=== PATIENT | male | born 1985 | race Two or more races ===

== ENCOUNTER 2018-01-12 10:45 | Emergency (ER) | payer MEDICAID, OTHER ==
[~2018-01-12] VITALS: Ht 167.6 cm; Wt 121.6 kg
[~2018-01-12 10:45] MED LIST: CYCLOBENZAPRINE10 MG ORAL; IBUPROFEN600 MG ORAL; NORCO 5-325 TA1 EACH ORAL; PERCOCET 5-3251 EACH ORAL; VALIUM10 MG ORAL
[2018-01-12] MEDS ORDERED: NKM (11:18)
[2018-01-12 11:41] VITALS: BP 155/91
[2018-01-12] MEDS ORDERED: Bacitracin Oint UD TOPIC ONE (12:15)
[2018-01-12] MEDS ORDERED: Cephalexin 500mg cap ORAL ONE (12:15)
[2018-01-12] MEDS ORDERED: Tetanus/Diptheria/Pertussis Vaccine 0.5ml Syr IM ONE (13:45)
--- NOTE | 2018-01-12 14:06 | Diagnostic Imaging Report ---
Indication: Pain, suspected foreign body Technique: 3 views left hand Comparison: none Findings: No acute fractures. No dislocations. The joint spaces are preserved. No radiopaque foreign body demonstrated Impression: Negative
--- NOTE | 2018-01-12 14:18 | Emergency Room Report ---
History of Present Illness General Chief Complaint: Foreign Body Source: Patient, Significant Other Present Illness HPI Patient had a splinter of wood poke through his L middle finger on Tuesday. There was swelling throughout the finger that day. Now it is localized to the proximal portion. He stated to me that he removed the piece of wood and is not sure he got all of it out. There is some pain there with throbbing. He denies numbness. The is some pain with movement of the finger - this has improved over the last few days. He is concerned about swelling and also redness. Denies fevers or chills. The redness is not advancing into the hand. R handed. Unknown last tetanus. No major medical problems. Allergies: Coded Allergies: No Known Allergies (Unverified , 04/18/14) Patient History Past Medical History: see triage record Social History: Denies: smoking Social History Narrative , works loading boxes Reviewed Nursing Documentation: PMH: Agreed; PSxH: Agreed Nursing Documentation-PMH Hx Asthma: Yes Review of Systems Constitutional: Reports: see HPI Musculoskeletal: Reports: see HPI Skin: Reports: see HPI Neurological: Reports: see HPI Hematologic/Lymphatic: Reports: see HPI Physical Exam Vital Signs Date Time Temp Pulse Resp B/P (MAP) Pulse Ox O2 Delivery O2 Flow Rate FiO2 01/12/18 11:15 98.3 64 17 157/96 96 Room Air 98.2 Sp02 EP Interpretation: reviewed, normal General Appearance: well appearing, no apparent distress, GCS 15 Head: normocephalic, atraumatic Eyes: bilateral eye normal inspection ENT: hearing grossly normal, normal voice, moist mucus membranes Neck: full range of motion, supple Respiratory: no respiratory distress, speaking full sentences Cardiovascular #1: normal inspection, regular rate, rhythm Cardiovascular #2: 2+ radial (L) - good capillary fill Gastrointestinal: normal inspection Musculoskeletal: gait/station normal, no calf tenderness, decreased range of mation - slight L middle finger without PROM pain, Swelling proximal phalynx area volar surface. Near full ROM, but slight decrease in flexion, swelling Neurologic: alert, sensory intact - distal finger, normal gait Psychiatric: mood/affect normal Skin: other - min erythema with PW both sides of volar surface of middle finger Medical Decision Making Diagnostic Impression: Primary Impression: Puncture wound Additional Impression: Cellulitis Qualified Codes: L03.012 - Cellulitis of left finger ER Course Patient presents 4 days after puncture wound with splinter removal with swelling and mild erythema. DDX: retained FB, cellulitis, abscess. Tendon not involved based on physical exam. Xray indicated. Also tetanus, antibiotics and analgesics. Xray, no FB observed. Finger spline applied by tech - position modified by me. Neuro normal post placement (dressing unable to see vasc). Sling also applied and position excellent. Improved with treatment. Discussed in detail (also written in aftercare) about outpatient observation and that we could not definitively exclude FB based on xray. Discussed both possibility of need for ultrasound or other imaging if not improving with antibiotics and immobilization. Also discussed possible need for admission for IV antibiotics if oral treatment not sufficient. Patient and understand. Patient stable for outpatient observation and treatment. Last Vital Signs Date Time Temp Pulse Resp B/P (MAP) Pulse Ox O2 Delivery O2 Flow Rate FiO2 01/12/18 14:50 97.7 63 17 131/84 97 Room Air 98.2 Status: improved Disposition: HOME, SELF-CARE Condition: Improved Scripts Bacitracin (Bacitracin) 28.4 Gm Oint...g. 1 APPLIC TOPIC BID, #20 GM Prov: Salvador Worthington M.D. 01/12/18 Acetaminophen (Tylenol) 325 Mg Tablet 650 MG ORAL Q6H PRN for Prn Pain/Headache/Temp > 101, #20 TAB 0 Refills Prov: Salvador Worthington M.D. 01/12/18 Ibuprofen* (MOTRIN*) 600 Mg Tablet 600 MG ORAL Q6H PRN for For Pain, #16 TAB Prov: Salvador Worthington M.D. 01/12/18 Cephalexin* (KEFLEX*) 500 Mg Capsule 500 MG ORAL Q6H, #28 CAP 0 Refills Prov: Salvador Worthington M.D. 01/12/18 Referrals: [facility],REFERR[facility] (PCP) Salvador Worthington M.D. Jan 12, 2018 14:18
[2018-01-12] MEDS ORDERED: IBUPROFEN600 MG ORAL (14:24)
[2018-01-12] MEDS ORDERED: TYLENOL325 MG ORAL (14:24)
[2018-01-12] MEDS ORDERED: KEFLEX500 MG ORAL (14:24)
[2018-01-12] MEDS ORDERED: BACITRACIN15 GM TOPIC (14:24)
[2018-01-12 14:50] VITALS: BP 131/84
== END 2018-01-12 14:50 | disposition home or self-care (01) ==
LOC: EMR 12:01
DX: S61.233A Puncture wound without foreign body of left middle finger without damage to nail, initial encounter (principal); L03.012 Cellulitis of left finger; X58.XXXA Exposure to other specified factors, initial encounter; Y92.009 Unspecified place in unspecified non-institutional (private) residence as the place of occurrence of the external cause; Z23 Encounter for immunization
CPT/HCPCS: 90471; 90715; 99284

== ENCOUNTER 2018-02-12 00:01 | Emergency (ER) | payer OTHER ==
[~2018-02-12] VITALS: Ht 167.6 cm; Wt 127.0 kg
[~2018-02-12 00:01] MED LIST changes: +BACITRACIN15 GM TOPIC; +KEFLEX500 MG ORAL; +NKM; +TYLENOL325 MG ORAL
[2018-02-12 01:15] VITALS: BP 130/82
[2018-02-12] MEDS ORDERED: AUGMENTIN 875-1 EAC1 ORAL (01:18)
[2018-02-12 01:40] VITALS: BP 130/82
--- NOTE | 2018-02-12 02:00 | Emergency Room Report ---
History of Present Illness General Chief Complaint: General Complaint Source: Patient, Medical Record Present Illness HPI 32-year-old male presents ED complaining of left middle finger pain and swelling. Patient was seen here approximately one month ago with a splinter in his finger. Patient pulled out the splinter but had pain and swelling. Had x- rays here and was discharged on antibiotics. States that the pain is swelling has overall improved but he notes some bumps to his finger. Denies any fevers or chills. Pain is dull, 5 out of 10, nonradiating. Notes full range of motion. No other aggravating relieving factors. Denies any other associated symptoms Allergies: Coded Allergies: No Known Allergies (Unverified , 04/18/14) Patient History Past Medical History: asthma Past Surgical History: other - L knee Pertinent Family History: none Social History: Denies: smoking, alcohol use, drug use Immunizations: UTD Reviewed Nursing Documentation: PMH: Agreed; PSxH: Agreed Nursing Documentation-PMH Past Medical History: No History, Except For Hx Asthma: Yes Hx Neurological Problems: Yes - Left knee surgery Review of Systems All Other Systems: negative except mentioned in HPI Physical Exam Vital Signs Date Time Temp Pulse Resp B/P (MAP) Pulse Ox O2 Delivery O2 Flow Rate FiO2 02/12/18 00:12 97.9 80 16 130/82 97 Room Air 97.9 Sp02 EP Interpretation: reviewed, normal General Appearance: no apparent distress, alert, GCS 15, non-toxic Head: normocephalic Eyes: bilateral eye normal inspection, bilateral eye PERRL ENT: normal ENT inspection Neck: normal inspection Respiratory: normal inspection Cardiovascular #1: normal inspection Gastrointestinal: normal inspection Rectal: deferred Genitourinary: no CVA tenderness Musculoskeletal: tender - nodular swelling to L middle finger. full ROM noted. no erythema/induration Neurologic: alert, oriented x3, responsive, motor strength/tone normal, sensory intact, speech normal Psychiatric: normal inspection Skin: normal inspection Lymphatic: normal inspection Procedures Incision and Drainage Incision and Drainage : Consent: Verbal Blade Size: 11 I & D Procedure: betadine prep, sterile drapes applied, sterile dressing applied, gauze wick placed Wound Location: other - L middle finger Wound's Depth, Shape: other - abscess Wound Explored: purulent discharge Anesthesia: 1% Lidocaine Volume Anesthetic (ccs): 1 Splint Applied?: No Sling Applied?: No Patient Tolerated: Well Complications: None Medical Decision Making Diagnostic Impression: Primary Impression: Abscess of finger Qualified Codes: L02.512 - Cutaneous abscess of left hand ER Course Hospital Course 32-year-old male presents ED with left middle finger pain and swelling Clinical course Patient placed on stretcher. After initial history, physical exam reveals male in no acute distress. On exam there is 2 areas of nodular swelling to the proximal aspect of left middle finger. When palpated some purulence is apparent. Full range of motion noted Reviewed EMR. Patient seen here on 01/12. X-rays which confirmed no foreign body. Was discharged on Keflex and bacitracin. Scuffed findings with patient. We will attempt I and D. Digital block applied. Small amount of purulent discharge was expressed. Dressing applied. We will prescribe antibiotics and provide hand referral Diagnosis - abscess of finger Stable and discharged to home with prescription for augmentin. wound Care instructions given. Followup with Hand. Return to ED if any signs of infection develop Last Vital Signs Date Time Temp Pulse Resp B/P (MAP) Pulse Ox O2 Delivery O2 Flow Rate FiO2 02/12/18 01:40 97.9 16 130/82 97 Room Air 97.9 02/12/18 01:15 80 Status: improved Disposition: HOME, SELF-CARE Condition: Stable Scripts Amoxicillin/Potassium Clav 875-125* (AUGMENTIN 875-125 TABLET*) 1 Each Tablet 1 TAB ORAL TWICE A DAY, #20 TAB Prov: Wyatt Joshua MD 02/12/18 Referrals: REMIGIO FARRELL PERRY M.D. Patient Instructions: Abscess, [id number] Wyatt Joshua MD February 12, 2018 02:00
== END 2018-02-12 01:40 | disposition home or self-care (01) ==
LOC: EMR 01:03
DX: L02.512 Cutaneous abscess of left hand (principal); J45.909 Unspecified asthma, uncomplicated
CPT/HCPCS: 26010; 99283; Z7502